=== PATIENT | male | born 2000 | race Caucasian/White ===

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

== ENCOUNTER 2022-05-01 13:23 | Emergency (ER) | payer BC ==
[2022-05-01] MEDS ORDERED: Azithromycin 250 MG Tab PO ONE (13:24)
[2022-05-01 15:02] LABS: CORONAVIRUS COVID-19 NAA NEGATIVE (NEGATIVE); RESPIRATORY SYNCYTIAL VIR NAA NEGATIVE (NEGATIVE)
[2022-05-01] MEDS ORDERED: Albuterol/Ipratropium 3.0-0.5 MG/3 ML Neb Soln NEB ONE (15:07)
[2022-05-01] MEDS ORDERED: Azithromycin 250 MG Tab ONE (15:43)
== END 2022-05-01 15:59 | disposition home or self-care (01) ==
LOC: DL.ED 13:23
DX: J98.9 Respiratory disorder, unspecified (principal); J45.909 Unspecified asthma, uncomplicated; F12.10 Cannabis abuse, uncomplicated; Z88.8 Allergy status to other drugs, medicaments and biological substances; Z20.822 Contact with and (suspected) exposure to COVID-19
CPT/HCPCS: 0241U; 71046; 87070; 87205; 99285; A9270; J7620-GY